=== PATIENT | male | born 1975 | race Caucasian/White ===

== ENCOUNTER 2016-08-10 06:33 | Day surgery (SDC) | payer BC ==
[~2016-08-10 06:33] MED LIST: KETOROLAC TROMETHAMINE 0.45% 4 DROP/0.4 ML DROPERETTE OS PRN
[2016-08-10] MEDS: BESIFLOXACIN HCL 0.6% OPH SUSP 5 ML BOTTLE OS PRN ×4 (06:48→08:06)
[2016-08-10] MEDS: TROPICAMIDE 1% OPH SOLN 3 ML OS PRN ×3 (06:48→07:09)
[2016-08-10] MEDS: CYCLOPENTOLATE 0.2%/PHENYLEPHRINE 1% OPH SOLN 2 ML OS PRN ×3 (06:48→07:09)
[2016-08-10] MEDS: TETRACAINE HCL 0.5% OPH SOLN 2 ML OS PRN ×3 (06:49→07:36)
[2016-08-10] MEDS ORDERED: MIDAZOLAM 2 MG/2 ML INJ ONE ×2 (07:05)
[2016-08-10] MEDS ORDERED: CHONDR SU A NA/HYALUR INTRAOC KIT (SURGICARE) ONE (07:11)
[2016-08-10] MEDS ORDERED: EPINEPHRINE INJ/PF 1 MG/1 ML AMPULE ONE (07:11)
[2016-08-10] MEDS ORDERED: LIDOCAINE 1% INJ-PF (10 MG/ML) 30 ML SDV ONE (07:11)
--- NOTE | 2016-08-10 12:03 | [facility] OPERATIVE REPORT E ---
[facility] Operative Report NAME: CELSO DOMINGUEZ AGE: 41Y DATE OF SURGERY: 08/10/2016 ROOM: PREOPERATIVE DIAGNOSIS: CATARACT, LEFT EYE. POSTOPERATIVE DIAGNOSIS: CATARACT, LEFT EYE. OPERATION: Cataract extraction with intraocular lens implant of the left eye. SURGEON: SANDRA JONES M.D. ANESTHESIA: Topical. PROCEDURE: After obtaining appropriate consent, the patient's left eye was prepped and draped in sterile fashion as well as the surgeon in a sterile manner and cataract surgery was started. First, a paracentesis blade was used to make a small side-port incision. Viscoelastic was used to inflate the anterior chamber. Next a 2.4-mm incision was made with the paracentesis blade. A continuous capsulorrhexis incision was made using a cystotome and Utrata forceps. Following this hydrodissection was carried out to make the lens fully loose and mobile and it was rotated 90 degrees. Following this, a djytvc-rhr-iywbrpm technique was used to phacoemulsify the lens with a CDE of 2.26. The remaining cortex was removed with irrigation/aspiration. Provisc was instilled into the capsular bag to inflate the bag. A SN60WF, 21.0 diopter lens was placed. The remaining viscoelastic material was removed with irrigation/aspiration. Following this, a 10-0 nylon suture was used to close the incision and it was found to be watertight. Vigamox was instilled in the eye and a protective shield was placed over the eye. The patient returned to the postoperative recovery in stable condition. DICTATING PHYSICIAN: SANDRA JONES M.D. [id number] PHY#: [id number] ID: [id number] JOB#: [id number] ACCT: [id number] cc:SANDRA JONES M.D. >
--- NOTE | 2016-08-10 12:04 | [facility] DISCHARGE SUMMARY E ---
[facility] Discharge Summary NAME: CELSO DOMINGUEZ AGE: 41Y ADMITTED: 08/10/2016 DISCHARGED: 08/10/2016 BRIEF HISTORY: This is a 41-year-old male who underwent cataract extraction of the left eye. He underwent surgery because he was having difficulty seeing small print and feeling unbalanced since having his first cataract surgery done. DIAGNOSIS: Cataract, left eye. DISCHARGE INSTRUCTIONS: He should be on a regular diet, no bending at his waist, no heavy lifting. He should use his Besivance, Ilevro and Durezol at 3 p.m. and 8 p.m. and sleep with a rigid shield. I will see him for his 1 day postoperative tomorrow. DICTATING PHYSICIAN: SANDRA JONES M.D. [id number] PHY#: [id number] ID: [id number] JOB#: [id number] ACCT: [id number] cc:SANDRA JONES M.D. >
== END 2016-08-10 08:47 | disposition home or self-care (01) ==
LOC: SC 06:33
PROVIDERS: ATTEND Internal Medicine
PROC: 08RK3JZ Replacement of Left Lens with Synthetic Substitute, Percutaneous Approach (ICD-10-PCS; principal; 2016-08-10 07:30)
DX: H25.042 Posterior subcapsular polar age-related cataract, left eye (principal)
CPT/HCPCS: 66984; V2632; J2250; J3490 ×2; J0171; 142

== ENCOUNTER → 2020-04-12 | Outpatient (CLI) | payer BC ==
--- NOTE | 2020-04-12 13:40 | [facility] STRESS TEST REPORT ---
Exercise stress test Date: April 12, 2020 Referring physician: Andrew Patterson PA-C. Performing physician: Luis Garcia MD Indication: Chest pain Clinical history 45-year-old male with medical history significant for dyslipidemia with strong family history of early artery disease who presented with symptoms of chest pain and dyspnea. We decided to proceed with exercise treadmill stress test to evaluate for myocardial ischemia as cause of symptoms.. Procedure The patient presented to the stress lab. The patient exercised on the treadmill according to Rob protocol for a total of 7 minutes and 14 seconds achieving a maximum heart rate of 142 bpm which was 82 % of maximum predicted of 173 bpm. The maximum workload was 10.1 METS. The presenting EKG showed sinus rhythm at 82 Bpm. The initial blood pressure was 131/93 mmHg. upon exercise the heart rate elida to a maximum of 142 beats per minute and the blood pressure elida to a maximum of 164/82 mmHg. The patient had appropriate increment in heart rate and blood pressure with exercise. The test was terminated on account of the patient reporting worsening chest pain. The stress EKG is positive for myocardial ischemia provoked by exercise with downsloping ST segment depressions > 3 mm in the inferior leads II, III and aVF. These changes occurred during the third stage of the Rob protocol around the heart rate 141 bpm which was below target. Changes recovered quickly after cessation of exercise. The recovery EKG did not reveal any evidence of myocardial ischemia. The test was terminated on account of patient indicating that he had worsening chest pain and EKG showing downsloping ST segment depression suggestive of myocardial ischemia. The patient's EKG and vital signs were monitored throughout the procedure. Conclusion The exercise EKG is positive for myocardial ischemia. Fair exercise tolerance. Normal heart rate and blood pressure response to exercise. Based on discussion with the patient we will go ahead and arrange for cardiac catheterization due to positive stress test. MTDD
== END ==
LOC: SP 08:41
PROVIDERS: ATTEND Internal Medicine
DX: R07.9 Chest pain, unspecified (principal); R06.02 Shortness of breath
CPT/HCPCS: 93017

== ENCOUNTER 2020-04-26 15:55 | Emergency (ER) | payer BC | END 2020-04-26 16:48 | disposition left against medical advice (07) | LOC: ER 15:55 | DX: Z53.21 Procedure and treatment not carried out due to patient leaving prior to being seen by health care provider (principal) ==